=== PATIENT | female | born 1950 | race Caucasian/White ===

== ENCOUNTER 2021-08-02 09:04 | Observation (INO) | payer MEDICARE ==
[2021-08-02] VITALS (26 sets, daily range): BP systolic 116–191; BP diastolic 73–130
[~2021-08-02] VITALS: Ht 152.4 cm; Wt 54.0 kg
[2021-08-02 10:13] LABS: HEMOGLOBIN 17.4 g/dl (12.0-16.0); IMMATURE GRANULOCYTES 0.4 % (0.0-5.0); MEAN CELL VOLUME 89.1 fL CALC (80.0-100.0); MEAN CORPUSCULAR HGB 32.3 pG CALC (26.0-32.0); MEAN CORPUSCULAR HGB CONC 36.3 g/dL CAL (32.0-36.0); NEUT# 8.99 thou/uL (2.00-7.15); RED BLOOD COUNT 5.39 mill/uL (4.20-5.60); RED CELL DISTRI WIDTH 12.3 % (11.5-15.5)
[2021-08-02 10:30] LABS: ALBUMIN 4.9 g/dL (3.2-5.0); ALKALINE PHOSPHATASE 104 u/l (38-126); ANION GAP 20 (6-22 (CALC)); BILIRUBIN, TOTAL 0.8 mg/dL (0.0-1.4); BUN 9 mg/dL (8-23); BUN/CREATININE RATIO 10 (12-20 (CALC)); CARBON DIOXIDE 19 mmol/l (22-30); CHLORIDE 104 mmol/l (95-108); CREATININE 0.9 mg/dL (0.5-1.0); GFR FOR AFR.AMER. > 60 ML/MIN (>=60 (CALC)); GFR OTHER RACES > 60 ML/MIN (>=60 (CALC)); POTASSIUM 3.7 mmol/l (3.5-5.1); SGOT/AST 40 u/l (9-36); SODIUM 139 mmol/l (137-146); TOTAL PROTEIN 8.2 g/dL (6.3-8.2)
[2021-08-02 12:10] LABS: URINE BILIRUBIN - DIPSTICK NEGATIVE (NEGATIVE); URINE BLOOD DIPSTICK SMALL (NEGATIVE); URINE COLOR YELLOW; URINE GLUCOSE - DIPSTICK NEGATIVE (NEGATIVE); URINE KETONE 15 mg/dL (NEGATIVE); URINE LEUK ESTERASE NEGATIVE (NEGATIVE); URINE PH 5.5 (4.5-8.0); URINE PROTEIN - DIPSTICK TRACE mg/dL (NEG-TRACE); URINE UROBILINOGEN - DIPSTICK 0.2 E.U./dL (0.2)
[2021-08-02 12:11] LABS: URINE NITRITE - DIPSTICK NEGATIVE (Negative)
[2021-08-02 12:13] LABS: URINE WBC 0-2 WBC/hpf (0-5)
[2021-08-03] VITALS (10 sets, daily range): BP systolic 117–189; BP diastolic 50–82
[2021-08-03 05:57] LABS: HEMATOCRIT 47.9 % (37.0-47.0); HEMOGLOBIN 16.7 g/dl (12.0-16.0); MEAN CELL VOLUME 90.5 fL CALC (80.0-100.0); MEAN CORPUSCULAR HGB 31.6 pG CALC (26.0-32.0); MEAN CORPUSCULAR HGB CONC 34.9 g/dL CAL (32.0-36.0); RED BLOOD COUNT 5.29 mill/uL (4.20-5.60); RED CELL DISTRI WIDTH 12.9 % (11.5-15.5)
[2021-08-03 06:36] LABS: CHOLESTEROL HDL RATIO 2.1 (<4.4 (CALC)); CREATININE 1.3 mg/dL (0.5-1.0); MAGNESIUM 1.7 mg/dL (1.6-2.3); POTASSIUM 4.2 mmol/l (3.5-5.1)
[2021-08-03] MEDS ORDERED: ZESTRIL10 M1 PO (09:54)
[2021-08-03] MEDS ORDERED: NORVASC5 M1 PO (09:54)
[2021-08-03] MEDS ORDERED: PAIN RELIEF650 MG PO (09:56)
[2021-08-03] MEDS ORDERED: DIAZEPAM5 M1 PO (09:56)
[2021-08-03] MEDS ORDERED: ALPRAZOLAM1 MG PO (09:57)
[2021-08-03] MEDS ORDERED: TRAMADOL HYDROC50 M1 PO (09:58)
[2021-08-03] MEDS ORDERED: OMEPRAZOLE DR40 MG PO ×2 (09:58→09:59)
[2021-08-03] MEDS ORDERED: CLONIDINE HYDR0.1 M1 PO (10:01)
[2021-08-03] MEDS ORDERED: AMLODIPINE BESY10 MG PO (12:24)
[2021-08-03] MEDS ORDERED: LISINOPRIL10 MG PO (12:24)
[2021-08-03] MEDS ORDERED: XANAX0.5 MG PO (12:27)
[2021-08-03] MEDS ORDERED: CLONIDINE0.1 MG PO (12:32)
[2021-08-06 11:45] VITALS: BP 163/74
[2021-08-06 12:00] VITALS: BP 151/87
[2021-08-06 12:16] VITALS: BP 179/74
[2021-08-06 12:17] VITALS: BP 165/80
== END 2021-08-03 13:25 | disposition home or self-care (01) ==
LOC: ED 09:04 → ED-I 09:24 → ED 09:24 → ED-I 14:05 → ED 14:36 → MS2 14:37
PROVIDERS: Family Medicine; ADMIT Hospitalist; ATTEND Hospitalist
DX: R07.89 Other chest pain (principal); I10 Essential (primary) hypertension; F41.9 Anxiety disorder, unspecified; F32.A Depression, unspecified; T46.5X6A Underdosing of other antihypertensive drugs, initial encounter; T43.506A Underdosing of unspecified antipsychotics and neuroleptics, initial encounter; Z91.128 Patient's intentional underdosing of medication regimen for other reason; Z20.822 Contact with and (suspected) exposure to COVID-19
CPT/HCPCS: G0378; J1650; J2060